=== PATIENT | male | born 1995 | race Hispanic/Latino ===

== ENCOUNTER 2021-01-12 22:00 | Emergency (ER) | payer MEDICARE ==
--- NOTE | 2021-01-13 08:22 | Emergency Department Report ---
HPI - General Time Seen by Provider: 01/13/21 08:07 - HPI HPI: This is a 25-year-old male presents to the emergency department from the [facility] hospitalization program for a mental health evaluation and/or clearance. The patient previously spent 1 week at [facility] for psychiatric treatment. He has a history of depression, anxiety and Asperger's syndrome. Patient says that he has been having some "inappropriate thoughts of hurting myself." However, the patient says that he is able to use "my coping skills and go on walks" and the patient is able to keep the self-harm thoughts at bay. At the time of my examination the patient denies any suicidal ideations. He denies any homicidal ideations or any hallucinations. The patient says that he thinks that the reason for these thoughts are because they stopped his Ativan for his anxiety. He has a past medical history of asthma. Patient says that he is homeless prior to the inpatient stay and the [facility]. ED Review of Systems ROS: Stated complaint: MH Other details as noted in HPI Comment: All other systems reviewed and negative Constitutional: denies: chills, fever Eyes: denies: eye pain, vision change ENT: denies: ear pain, throat pain Respiratory: denies: cough, shortness of breath Cardiovascular: denies: chest pain, palpitations Gastrointestinal: denies: abdominal pain, vomiting Genitourinary: denies: dysuria, discharge Musculoskeletal: denies: joint swelling, arthralgia Skin: denies: rash, lesions Neurological: denies: headache, weakness Psychiatric: suicidal thoughts (Intermittent thoughts of self-harm). denies: auditory hallucinations, visual hallucinations, homicidal thoughts Physical Exam - Physical Exam Physical Exam: GENERAL: The patient is well-developed well-nourished. HENT: Normocephalic. Atraumatic. Patient has moist mucous membranes. EYES: Extraocular motions are intact. NECK: Supple. Trachea is midline. CHEST/LUNGS: Clear to auscultation. There is no respiratory distress noted. HEART/CARDIOVASCULAR: Regular. There is no tachycardia. There is no murmur. ABDOMEN: Abdomen is soft, nontender. Patient has normal bowel sounds. There is no abdominal distention. SKIN: Skin is warm and dry. NEURO: The patient is awake, alert, and oriented. The patient is cooperative. The patient has no focal neurologic deficits. Normal speech. MUSCULOSKELETAL: There is no tenderness or deformity. There is no limitation range of motion. ED Course - Reevaluation(s) Reevaluation #1: 01/13/21 08:19 Patient presented last night during downtime. His labs are not currently in the EMR but have resulted and are on the chart. They appear mostly unremarkable including CBC, metabolic panel, blood alcohol level, UDS and urinalysis, except for the patient has transaminitis with an AST of 108 and ALT of 183, and urinalysis says that there is a large amount of blood with 8 red blood cells in the urine. Patient denies any abdominal pain. He denies any new workout regiment. He says that prior to inpatient treatment he was homeless and walking 10 to 15 miles per day. I'm going to recheck the LFTs and check a CK level. However, the patient is not jaundiced, and once again does not have any abdominal pain. There is no renal insufficiency. Barring a very significant CK level showing acute rhabdomyolysis, I would consider this patient to be medically cleared. He can always follow-up outpatient regarding your transaminitis and will just have to avoid Tylenol/Acetaminophen and any alcohol use. ED Medical Decision Making - Lab Data Lab Results 01/13/21 01/13/21 Range/Units 01:20 09:27 Total Bilirubin 0.30 (0.1-1.2) mg/dL Direct Bilirubin < 0.2 (0-0.2) mg/dL Indirect Bilirubin 0.1 mg/dL AST 125 H (5-40) units/L ALT 200 H (7-56) units/L Alkaline Phosphatase 69 (35-129) units/L Total Creatine Kinase 102 (55-170) units/L Total Protein 6.8 (6.3-8.2) g/dL Albumin 4.5 (3.9-5) g/dL Albumin/Globulin Ratio 2.0 % Plasma/Serum Alcohol < 0.01 (0-0.07) % - Medical Decision Making This patient presents to the emergency department for an mental health evaluation or a medical clearance. He is currently in the partial hospitalization program at the [facility] but apparently has been having some issues with suicidal ideations or thoughts of self-harm. However, the patient does admit that he is able to use coping mechanisms such as taking long walks and he is able to control these thoughts. At the time of my examination he denies any desire to harm himself or end his life. He is awake, alert, oriented, and appears to have a normal decision-making capacity. He does not express any signs of acute psychosis. He denies any homicidal ideations. He was seen by the psychiatric nurse practitioner who agrees that the patient does not appear to require inpatient stabilization at this time. However, in regards to his psychiatric mental state, he understands that he should call 911 or return to the emergency department immediately with any thoughts of harming himself or others or with any acute distress. The patient's labs were mostly unremarkable except for transaminitis with ALT greater than AST. No elevation in the bilirubin. The patient denies any abdominal or back pain. No signs of any jaundice or scleral icterus. I discussed these lab findings with the patient. He understands to avoid alcohol, Tylenol/acetaminophen, and that he will need outpatient follow-up with [facility]. Critical Care Time: No Critical care attestation.: If time is entered above; I have spent that time in minutes in the direct care of this critically ill patient, excluding procedure time. ED Disposition Clinical Impression: Anxiety, Elevated liver enzymes, Medical clearance for psychiatric admission Depression Qualifiers: Depression Type: unspecified Qualified Code(s): F32.9 - Major depressive disorder, single episode, unspecified Disposition: DC-01 TO HOME OR SELFCARE Is pt being admited?: No Condition: Stable Instructions: Major Depressive Disorder, Adult, Managing Anxiety, Adult Additional Instructions: Your labs today show elevated liver enzymes. I am giving you a referral for a local gastroenterology group, [facility], to follow-up regarding further evaluation of these elevated liver enzymes. Please avoid any alcohol use, or any Tylenol/acetaminophen use, as this can worsen your liver enzymes. You will need to follow-up outpatient regarding the elevated liver enzymes, but otherwise I consider you medically cleared to return to the [facility]. Please return to the emergency department immediately with any worsening of your symptoms, thoughts of harming your self or others, or with any acute distress. Referrals: PRIMARY MD DINORA [Primary Care Provider] - 2-3 Days [facility] [Provider Group] - 2-3 Days Time of Disposition: 12:20
[2021-01-13 11:14] LABS: Alanine Aminotransferase 200 units/L (7-56); Albumin 4.5 g/dL (3.9-5)
[2021-01-13 11:19] LABS: Bilirubin,Direct < 0.2 mg/dL (0-0.2)
--- NOTE | 2021-01-13 12:12 | Consultation ---
History of Present Illness - Reason for Consult Consult date: 01/13/21 Reason for consult: anxiety, SI - History of Present Psychiatric Illness Per ER Note: This is a 25-year-old male presents to the emergency department from the [place] [facility] hospitalization program for a mental health evaluation and/or clearance. The patient previously spent 1 week at [facility] for psychiatric treatment. He has a history of depression, anxi ety and Asperger's syndrome. Patient says that he has been having some "inappropriate thoughts of hurting myself." However, the patient says that he is able to use "my coping skills and go on walks" and the patient is able to keep the self-harm thoughts at bay. At the time of my examination the patient denies any suicidal ideations. He denies any homicidal ideations or any hallucinations. The patient says that he thinks that the reason for these thoughts are because they stopped his Ativan for his anxiety. He has a past medical history of asthma. Patient says that he is homeless prior to the inpatient stay and the [facility]. 25y/o Jose R Segura was seen today, he is lying down awake. He is calm and cooperative. The patient says he was anxious when he came in and was feeling suicidal. But he states he used his coping skills and went for a walk. He says "but I've been feeling fine since last night after I had that walk." He says but the people at the [facility] told him he needed to come and be seen. He currently denies SI/HI or hallucinations of any kind. He also denies any feelings of endangerment. PAST PSYCHIATRIC HISTORY Diagnoses: Anxiety, depression, and aspergers Suicide attempts or Self-harm behavior: Yes Prior psychiatric hospitalizations: Yes Substance Abuse history: tobacco Previous psychiatric medications tried: wellbutrin and vistaril Outpatient treatment: Denies SOCIAL HISTORY Marital Status: Single Living Arrangements: at [facility] Employment Status: Disabled Access to guns/weapons: Denies Education: high school History of Abuse: Denies Legal History: None reported REVIEW OF SYSTEMS Constitutional: Negative for weight loss ENT: Negative for stridor Respiratory: Negative for cough or hemoptysis All other systems reviewed and are negative MENTAL STATUS EXAMINATION General Appearance and Behavior: Age appropriate, dressed appropriately, calm and cooperative Cooperation: Participating Psychomotor Behavior: psychomotor normal Mood: "fine" Affect and affective range: Congruent with stated mood Thought Process: goal directed Thought Content: optimism Speech: Normal volume, Regular rate and rhythm, Intellectual Functioning: Average Suicidal Ideation: Denies Homicidal Ideation: Denies Hallucinations: Denies Delusions: None elicited Impulse Control: Unimpaired Insight and Judgment: Limited insight and judgment, Memory: Limited Attention: Undivided Orientation: Alert, oriented Assessment and Plan (1) MDD Treatment Plan Continue previously prescribed meds by outpatient Sitter: defer to primary Medical: Per primary Disposition: Do not recommend acute psychiatric inpatient treatment. The patient understands that if suicidal thoughts are to return he is to seek immediate assistance. He may return to the [facility]. Will sign off. Thanks. Case staffed by Dr. Bucio Medications and Allergies Allergies Allergy/AdvReac Type Severity Reaction Status Date / Time No Known Allergies Allergy Unverified 01/13/21 08:48 Mental Status Exam - Vital signs Last Vital Signs Temp 97.7 F 01/13/21 08:43 Pulse 73 01/13/21 08:43 Resp 15 01/13/21 08:43 BP 106/78 01/13/21 08:43 Pulse Ox 97 01/13/21 08:43 Results Abnormal lab results 01/13/21 Range/Units 09:27 AST 125 H (5-40) units/L ALT 200 H (7-56) units/L All other labs normal.
[2021-01-13 12:45] VITALS: BP 117/78
[2021-01-13 13:37] LABS: Alanine Aminotransferase 184 units/L (7-56); Albumin 4.8 g/dL (3.9-5); BUN/Creatinine Ratio 20; Blood Urea Nitrogen 16 mg/dL (9-20); Hemolysis Index 8
[2021-01-13 14:34] LABS: Color,Urine Yellow (Yellow)
[2021-01-13 14:35] LABS: Bilirubin,Urine Negative (Negative); Blood,Urine Large (Negative); Protein,Urine <15 mg/dL mg/dL (Negative); Urobilinogen,Urine < 2.0 mg/dL (<2.0)
[2021-01-13 14:36] LABS: Mucus,Urine Few /HPF
== END 2021-01-13 12:30 | disposition home or self-care (01) ==
LOC: ED 22:00
DX: F32.9 Major depressive disorder, single episode, unspecified (principal); F41.9 Anxiety disorder, unspecified; R74.8 Abnormal levels of other serum enzymes; Z00.8 Encounter for other general examination
CPT/HCPCS: 36415; 80053; 80076; 80320; 81001; 82550; G0480